=== PATIENT | female | born 2000 | race Hispanic/Latino ===

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

== ENCOUNTER → 2021-08-25 13:42 | Outpatient (CLI) | payer OTHER, SELFPAY ==
[2021-08-25 14:05] LABS: Appearance Urine UA CLEAR; Bilirubin Urine UA NEGATIVE (NEGATIVE); Color Urine UA YELLOW; Glucose Urine UA NEGATIVE (Negative); Ketones Urine UA NEGATIVE (NEGATIVE); Leukocyte Esterase Urine UA TRACE (NEGATIVE); Nitrite Urine UA NEGATIVE (Negative); Occult Blood Urine UA TRACE-INTACT (Negative); Protein Urine UA NEGATIVE (Negative); Specific Gravity Urine UA <=1.005 (1.000-1.035); Urobilinogen Urine UA 0.2 E.U./dL (0.2)
[2021-08-25 14:06] LABS: pH Urine UA 6.5 (4.5-8.0)
[2021-08-25 14:20] LABS: RBC Urine None Seen (0-5/HPF); WBC Urine 1-5/HPF (0-5/HPF)
[2021-08-25 14:21] LABS: Bacteria Urine Moderate (10-30)
[2021-08-25 15:12] LABS: Add Manual Diff / Slide Review NO; Basophils Absolute Auto 0 /uL (0-100); Basophils Percent Auto 0.1 % (0-2); Eosinophils Absolute Auto 100 /uL (0-450); Eosinophils Percent Auto 1.4 % (2-4); Hematocrit 33.7 % (36-46); Hemoglobin 11.4 g/dL (12.0-16.0); Lymphocytes Absolute Auto 1400 /uL (1100-4500); Lymphocytes Percent Auto 19.5 % (25-40); Mean Corpuscular HGB Conc 33.7 % (30-36); Mean Corpuscular Hemoglobin 27.4 PG (26-34); Mean Corpuscular Volume 81.3 fL (80-100); Monocytes Absolute Auto 400 /uL (0-900); Neutrophils Absolute Auto 5400 /uL (1500-7000); Platelet Count 274 X10^3/uL (150-400); Red Blood Cell Count 4.15 X10^6/uL (4.0-5.2); Red Cell Distribution Width 15.5 % (11.6-14.8); White Blood Cell Count 7.4 X10^3/uL (4.5-11.0)
[2021-08-25 15:38] LABS: Alanine Aminotransferase 19 IU/L (<35); Albumin 3.9 g/dL (3.5-5.0); Albumin Globulin Ratio 1.2 (1.0-2.8); Alkaline Phosphatase 56 U/L (38-126); Aspartate Aminotransferase 19 IU/L (14-36); BUN Creatinine Ratio 15.1 (6-22); Bilirubin Total 0.3 mg/dL (0.2-1.3); Blood Urea Nitrogen 8 mg/dL (7-17); Calcium 10.2 mg/dL (8.4-10.2); Carbon Dioxide 26 mmol/L (22-32); Chloride 103 mmol/L (98-107); Estimated Glomerular Filt Rate > 60.0 mL/min (>60); Globulin 3.2 g/dL (1.7-4.1); Glucose 100 mg/dL (70-100); HEMOLYSIS < 15 (0-50); Potassium 3.8 mmol/L (3.4-5.1); Sodium 136 mmol/L (137-145); Total Protein 7.1 g/dL (6.3-8.2); Uric Acid 3.8 mg/dL (2.5-6.2)
[2021-08-25 15:40] LABS: Creatinine Urine Random 14.1 mg/dL; Protein (Total) Urine Random 13 mg/dL (0-12); Protein Creatinine Ratio Urine 0.92 GRAM/24H
[2021-08-26 08:08] LABS: Varicella IgG Antibody 1694 index (Immune >165)
[2021-08-26 20:20] LABS: Hepatitis B Surface Antigen NEGATIVE s/c (NEGATIVE)
[2021-08-26 20:43] LABS: HIV 1 & 2 Ab/Ag 4th Gen Combo NEGATIVE (NEGATIVE); Hep C Virus Ab w/Reflex Quant NEGATIVE s/c (NEGATIVE)
[2021-09-21 11:09] LABS: RPR Screen REACTIVE
[2021-09-21 11:10] LABS: RPR Quant + RPR Abs NON REACTIVE
== END ==
PROVIDERS: Family Provider Pediatrics; PCP Family Medicine; Referring Provider Obstetrics & Gynecology; Visit Provider Obstetrics & Gynecology
DX: Z34.00 Encounter for supervision of normal first pregnancy, unspecified trimester (principal)
CPT/HCPCS: 36415; 80053; 80055; 81003; 81015; 82570; 84156; 84550; 86787; 86803; 86850; 86900; 86901; 87077; 87086; 87186; 87389

== ENCOUNTER → 2021-09-13 11:17 | Outpatient (CLI) | payer OTHER, MEDICAID, SELFPAY ==
[2021-09-14 20:58] LABS: Treponema pallidum Antibodies Non Reactive (Non Reactive)
== END ==
PROVIDERS: Family Provider Pediatrics; PCP Family Medicine; Referring Provider Obstetrics & Gynecology; Visit Provider Obstetrics & Gynecology
DX: A53.0 Latent syphilis, unspecified as early or late (principal); Z34.82 Encounter for supervision of other normal pregnancy, second trimester
CPT/HCPCS: 36415; 86780

== ENCOUNTER → 2021-10-03 08:57 | Outpatient (CLI) | payer OTHER, MEDICAID, SELFPAY ==
--- NOTE | 2021-10-03 08:59 | DI.US.S_ITS ---
PROCEDURE: US OB >= 14 WEEKS FETUS INDICATIONS: ANATOMY OUTSIDE/PRIOR DATING DATA: Last menstrual period (LMP): May 13, 2021 LMP-based estimated date of delivery (SANDY): February 17, 2022. First dating scan (date): July 28, 2021. Estimated date of delivery (SANDY) from first dating scan: February 18, 2022. TECHNIQUE: Real-time scanning was performed of the fetus, with image documentation and biometric measurements. COMPARISON: None. FINDINGS: General: A single living intrauterine gestation is present. Presentation: Vertex. Placenta: Placental position is anterior , without previa. Amniotic fluid index: 15.6 cm, normal range is 5-24 cm. Single deepest vertical pocket is 5 cm. heart rate: 155 beats per minute. Maternal cervical canal: 4.5 cm long. Normal lower limit is 2.5 cm. biometrics: Biparietal diameter: 4.9 cm Head circumference: 19 cm Abdominal circumference: 16.4 cm Femur length: 3.4 cm Clinically estimated gestational age: 20 weeks, 2 days Composite gestational age from present scan: 21 weeks, 1 Estimated weight and percentile: 398 g +/-59 g; 86 percentile Anatomic survey: Neuro: Ventricles are non-dilated at less than 10 mm. Cisterna magna is normal at 3-11 mm. Cerebellum is normal in size and morphology. Nuchal skin fold: Normal at less than 6 mm between 14-21 weeks gestational age. Face: Nose and lips, facial profile are normal. Spine: No evidence for spina bifida. Heart: 4-chambered heart is present, with normal ventricular outflow tracts. Diaphragm: Diaphragm is intact. Stomach: Left-sided stomach is present. Kidneys: No hydronephrosis. Normal is less than 5 mm in 2nd trimester, less than 7 mm in 3rd trimester. Cord: 3-vessel cord has orthotopic insertion. Bladder: Normal in size. Extremities: All 4 extremities identified. IMPRESSION: Live single intrauterine gestation as detailed above. We strive to produce accurate, complete, and clear reports of imaging services. To assist us in improving patient care, this report was composed using standard report templates and voice recognition software. Therefore, it may contain abnormal punctuation, insertions and/or omissions. Occasional wrong-word or sound-alike substitutions may occur. Though we review the report and make efforts to correct it, we do recommend that the report be read carefully in proper context to recognize any text inaccuracies. Dictated by: Kendrick Crabtree M.D. on 10/03/2021 at 14:45 Approved by: Kendrick Crabtree M.D. on 10/03/2021 at 14:47
== END ==
PROVIDERS: Family Provider Pediatrics; PCP Family Medicine; Referring Provider Obstetrics & Gynecology; Visit Provider Obstetrics & Gynecology
DX: Z34.02 Encounter for supervision of normal first pregnancy, second trimester (principal); Z3A.21 21 weeks gestation of pregnancy
CPT/HCPCS: 76811

== ENCOUNTER → 2021-11-14 11:16 | Outpatient (CLI) | payer OTHER, MEDICAID, SELFPAY ==
[2021-11-14 15:50] LABS: Protein (Total) Urine Random 6 mg/dL (0-12); Protein Creatinine Ratio Urine 0.04 GRAM/24H
== END ==
PROVIDERS: Family Provider Pediatrics; PCP Family Medicine; Visit Provider Obstetrics & Gynecology
DX: Z87.59 Personal history of other complications of pregnancy, childbirth and the puerperium (principal)
CPT/HCPCS: 82570; 84156

== ENCOUNTER → 2021-11-23 08:04 | Outpatient (CLI) | payer OTHER, MEDICAID, SELFPAY ==
[2021-11-23 10:23] LABS: Hematocrit 30.4 % (36-46)
[2021-11-23 10:57] LABS: GTT (PREG) 1 Hour PP 50gm Dose 146 mg/dL (76-139)
== END ==
PROVIDERS: Family Provider Pediatrics; Referring Provider Obstetrics & Gynecology; Visit Provider Obstetrics & Gynecology
DX: Z34.02 Encounter for supervision of normal first pregnancy, second trimester (principal); Z3A.26 26 weeks gestation of pregnancy
CPT/HCPCS: 82950; 85014; 85018

== ENCOUNTER → 2021-11-29 07:36 | Outpatient (CLI) | payer OTHER, MEDICAID, SELFPAY ==
[2021-11-29 10:26] LABS: Glucose Fasting Gestational 78 mg/dL (76-95)
[2021-11-29 10:26] LABS: Glucose 1 Hour Gest 160 mg/dL (76-180)
[2021-11-29 10:42] LABS: Glucose 2 Hour Gest 135 mg/dL (76-155)
[2021-11-29 11:22] LABS: Glucose Tol Interp,Gestational INTERPRETATION
[2021-11-29 12:11] LABS: Glucose 3 Hour Gest 133 mg/dL (76-140)
== END ==
PROVIDERS: Family Provider Pediatrics; Referring Provider Obstetrics & Gynecology; Visit Provider Obstetrics & Gynecology
DX: R73.09 Other abnormal glucose (principal)
CPT/HCPCS: 36415; 82951; 82952

== ENCOUNTER → 2021-12-04 12:45 | Outpatient (ROUT) | payer OTHER, MEDICAID, SELFPAY ==
[2021-12-04 15:51] LABS: Creatinine Urine Random 117.1 mg/dL; Protein (Total) Urine Random 9 mg/dL (0-12); Protein Creatinine Ratio Urine 0.07 GRAM/24H
== END ==
PROVIDERS: Family Provider Pediatrics; PCP Obstetrics & Gynecology; Visit Provider Obstetrics & Gynecology
DX: Z34.00 Encounter for supervision of normal first pregnancy, unspecified trimester (principal); Q63.9 Congenital malformation of kidney, unspecified
CPT/HCPCS: 82570; 84156

== ENCOUNTER → 2022-01-11 07:55 | Outpatient (CLI) | payer OTHER, MEDICAID, SELFPAY ==
[2022-01-11 10:04] LABS: GTT (PREG) 1 Hour PP 50gm Dose 163 mg/dL (76-139)
== END ==
PROVIDERS: Family Provider Pediatrics; PCP Obstetrics & Gynecology; Referring Provider Obstetrics & Gynecology; Visit Provider Obstetrics & Gynecology
DX: Z34.03 Encounter for supervision of normal first pregnancy, third trimester (principal); Z3A.34 34 weeks gestation of pregnancy
CPT/HCPCS: 36415; 82950

== ENCOUNTER → 2022-01-22 11:24 | Outpatient (CLI) | payer OTHER, MEDICAID, SELFPAY ==
[2022-01-23 15:32] LABS: Strep Grp B PCR NEG for Grp B Strep
== END ==
PROVIDERS: Family Provider Pediatrics; PCP Obstetrics & Gynecology; Visit Provider Obstetrics & Gynecology
DX: Z34.03 Encounter for supervision of normal first pregnancy, third trimester (principal); Z3A.36 36 weeks gestation of pregnancy
CPT/HCPCS: 87653

== ENCOUNTER → 2022-01-25 07:43 | Outpatient (CLI) | payer OTHER, MEDICAID, SELFPAY ==
[2022-01-25 08:37] LABS: Glucose Fasting Gestational 82 mg/dL (76-95)
[2022-01-25 10:03] LABS: Glucose 1 Hour Gest 151 mg/dL (76-180)
[2022-01-25 10:45] LABS: Glucose 2 Hour Gest 142 mg/dL (76-155)
[2022-01-25 10:59] LABS: Glucose Tol Interp,Gestational INTERPRETATION
[2022-01-25 12:37] LABS: Glucose 3 Hour Gest 99 mg/dL (76-140)
== END ==
PROVIDERS: Family Provider Pediatrics; PCP Obstetrics & Gynecology; Referring Provider Obstetrics & Gynecology; Visit Provider Obstetrics & Gynecology
DX: O99.810 Abnormal glucose complicating pregnancy (principal)
CPT/HCPCS: 36415; 82951; 82952

== ENCOUNTER 2022-01-29 02:22 | Outpatient (CLI) | payer OTHER, MEDICAID, SELFPAY | END 2022-01-29 03:44 | disposition home or self-care (01) | LOC: LABOR 02:24 → OB 09:48 | PROVIDERS: Family Provider Pediatrics; PCP Obstetrics & Gynecology; Referring Provider Obstetrics & Gynecology; Visit Provider Obstetrics & Gynecology | DX: O26.893 Other specified pregnancy related conditions, third trimester (principal); R10.9 Unspecified abdominal pain; R07.9 Chest pain, unspecified; Z3A.37 37 weeks gestation of pregnancy | CPT/HCPCS: 59025; G0378; G0379 ==

== ENCOUNTER 2022-02-16 05:45 | Inpatient (IN) | payer OTHER, MEDICAID, SELFPAY ==
[2022-02-16 07:00] LABS: COVID19 -Nasal RAPID Negative (Negative)
[2022-02-16 07:01] LABS: Add Manual Diff / Slide Review NO; Basophils Absolute Auto 100 /uL (0-100); Basophils Percent Auto 0.5 % (0-2); Eosinophils Absolute Auto 100 /uL (0-450); Eosinophils Percent Auto 1.1 % (2-4); Hematocrit 32.8 % (36-46); Hemoglobin 10.9 g/dL (12.0-16.0); Lymphocytes Absolute Auto 3100 /uL (1100-4500); Lymphocytes Percent Auto 23.3 % (25-40); Mean Corpuscular HGB Conc 33.3 % (30-36); Mean Corpuscular Hemoglobin 28.3 PG (26-34); Mean Corpuscular Volume 84.9 fL (80-100); Monocytes Absolute Auto 800 /uL (0-900); Monocytes Percent Auto 5.9 % (3-14); Neutrophils Absolute Auto 9100 /uL (1500-7000); Neutrophils Percent Auto 69.2 % (50-75); Platelet Count 254 X10^3/uL (150-400); Red Blood Cell Count 3.86 X10^6/uL (4.0-5.2); Red Cell Distribution Width 16.6 % (11.6-14.8); White Blood Cell Count 13.2 X10^3/uL (4.5-11.0)
--- NOTE | 2022-02-16 07:46 | PM.OBHP.IH.1 ---
OB HPI Date/Time Date of admission: 02/16/22 Date Patient Seen: 02/16/22 Time Patient Seen: 07:46 History of Present Condition Chief complaint: INPT SANDY Calculator Estimated Delivery Date Method Current WG Current Estimate 02/17/22 LMP (Uncertain) 39w 6d Other Estimates 02/18/22 Ultrasound #1 39w 5d Estimated Gestational Age (weeks): 39 : 1 Para: 0 Narrative: This patient is a 22yo @39+6 presenting for elective primary section in the setting of suspected macrosomia. The patient has failed 1 hr glucose screens and passed 3 hour glucose screens x2, and has had no other complications. Most recent EFW 1 week ago was 9#3, 96@ with AC measuring over 41 weeks. Patient reports feeling well today with no symptoms obstetrical or otherwise. No contributory medical, surgical, family, or social history. care: good care, initiated at week # (10), number of visits (13) and pounds weight gain (42) Dating criteria OB: LMP confirmed by 1st trimester US Ultrasounds: normal mid trimester US Obstetrical complications: none Medical complications OB: none Indications Operative indications ( section): elective Preadmission Labs Last OB Lab Results: Blood Type A Positive 02/16/22 06:20 Antibody Screen Negative 02/16/22 06:20 Hematocrit 32.8 % (36-46) L 02/16/22 06:20 Hemoglobin 10.9 g/dL (12.0-16.0) L 02/16/22 06:20 Hepatitis B Surface Antigen Negative s/c (NEGATIVE) 08/25/21 13:46 Hepatitis C Antibody Negative s/c (NEGATIVE) 08/25/21 13:46 RPR Titer Additional Testing Non reactive 08/25/21 13:46 Rubella Antibody 226.0 IU/mL (>15) 08/25/21 13:46 Varicella-Zoster IgG Antibody 1694 index (Immune >165) 08/25/21 13:46 Glucose 1 Hour 163 mg/dL (76-139) H 01/11/22 08:07 Group B Streptococcus (PCR) Neg for grp b strep 01/22/22 11:24 Glucose Tolerance Testing: Fasting (82), 1 hr (141), 2 hr (152) and 3 hr (88) -: Chlamydia screen: negative, Gonorrhea screen: negative and Urine: negative -: PAP smear: Normal External Labs -: Urine: negative Evaluation Evaluation Baseline heart rate: 130 Variability: Moderate (11-25) monitor accelerations: Present Monitor Decelerations: Absent Category of Tracing: Reactive Status: Category l Comments: 101/50, HR 86, afebrile [facility] Medical History Anemia Kidney anomaly, congenital Tenosynovitis, de [place] Surgical History Anesthesia [place] teeth removed (~11/12/17) Family History Mother Hyperthyroidism Sister Hyperthyroidism Grandfather Hyperlipidemia Grandmother Hypertension Grandfather Diabetes mellitus Social History marital status: ( in march) household members: spouse lives independently: Yes caregiver/support person: Yes housing: other (Trailer) pets and animals: Yes (Dog) education level: high school occupational status: employed (Dental resident assistant) current occupational exposures/hazards: No enedina/evangelical: Christianity seatbelt use: always water heater temp set < 120 deg: Yes working smoke detector in home: Yes firearms in home: No do you feel safe at home: Yes Smoking Status: Never smoker alcohol intake: former (stopped for pregancy) substance use type: does not use during the past year weight has: remained stable well-balanced diet: daily or most days daily servings fruits/ve-4 caffeine: Yes (Rarely) eating out: 1-3 times/week Type(s) of exercise: walking frequency: 1-2 times per week Meds Home Medications and Allergies Home Medications Medication Instructions Recorded Confirmed Type vitamins no.119-iron See Rx Instructions .Route .COMPLEX 09/21/21 02/16/22 History fumarate 29 mg-folic acid 1 mg tablet (Se-Santosh-19) Allergies Allergy/AdvReac Type Severity Reaction Status Date / Time No Known Drug Allergies Allergy Verified 01/29/22 09:38 Review of Systems Constitutional Constitutional: Reports system reviewed and no additional complaints, except as documented Cardiovascular Cardiovascular: Reports system reviewed and no additional complaints, except as documented Respiratory Respiratory: Reports system reviewed and no additional complaints, except as documented Gastrointestinal Gastrointestinal: Reports system reviewed and no additional complaints, except as documented Genitourinary Genitourinary: Reports system reviewed and no additional complaints, except as documented Neurologic Neurologic: Reports system reviewed and no additional complaints, except as documented OB Exam Resp Effort & Inspection: normal respiratory effort Auscultation: clear to auscultation bilaterally Cardio Rate: regular rate Rhythm: regular rhythm GI Palpation: Yes soft and No tender Objective Labs Result Diagrams: 02/16/22 06:20 Labs: Laboratory Results - last 24 hr 02/16/22 02/16/22 02/16/22 06:20 06:20 06:20 WBC 13.2 H RBC 3.86 L Hgb 10.9 L Hct 32.8 L MCV 84.9 MCH 28.3 MCHC 33.3 RDW 16.6 H Plt Count 254 Neut % (Auto) 69.2 Lymph % (Auto) 23.3 L [place] % (Auto) 5.9 Eos % (Auto) 1.1 L Baso % (Auto) 0.5 Neut # (Auto) 9100 H Lymph # (Auto) 3100 [place] # (Auto) 800 Eos # (Auto) 100 Baso # (Auto) 100 SARS-CoV-2 (PCR) Negative Blood Type A Positive Antibody Screen Negative Assessment and Plan Assessment and Plan Assessment and Plan narrative: This patient is admitted for a scheduled primary section, elective in the setting of suspected macrosomia. We reviewed the risks of C section and the alternative of attempted vaginal , and the patient would like to proceed with section. She will be prepared per the usual protocol.
[2022-02-16] MEDS: CEFAZOLIN 2 GM/20 ML SYRINGE IV (08:13)
--- NOTE | 2022-02-16 08:20 | SUR.OPER ---
Supine on padded OR bed, head on pillow, arms secured on padded arm boards at <90 degrees abduction, legs uncrossed, safety belt at thigh, tape over blanket over lower legs.
--- NOTE | 2022-02-16 08:41 | SUR.OPER ---
LIVE BABY BOY TOB 0813
[2022-02-16] MEDS: LACTATED RINGERS 1,000 ML 100 ML IV ×2 (08:45→10:55)
--- NOTE | 2022-02-16 08:48 | SUR.OPER ---
BABY AND PLACENTA TO L&D WITH L&D RN AND DAD @ 1498
[2022-02-16 09:24] VITALS: BP 124/82; PULSE 93; RESP 16; TEMP 36.9; O2SAT 99
--- NOTE | 2022-02-16 09:27 | P.OP_ITS ---
Operative Date/Time/Diagnoses Date of procedure: 02/16/22 Time of procedure: 07:45 Pre-op diagnosis: elective primary section, suspected macrosomia Post-op diagnosis: same Procedure & Clinicians Procedure: primary section Same procedure as scheduled: Yes Indications: suspected macrosomia Surgeon: Sigrid Kaur Assurance Senior Manager: Jocelin Meneses Reason for Assurance Senior Manager: Assistance with retraction, suturing, and delivery of baby. Anesthesia Type: Spinal Operative Notes Findings: Normal uterus, tubes, and ovaries. Male in cephalic presentation, weight 9#1, apgars 7+8 Closure Type: primary Specimen(s): cord blood Intraoperative meds administered: Ketorolac Estimated Blood Loss (mL): 750 Procedure in detail: EBL: 750ccs Fluids: 1800ccs UOP: 300ccs clear yellow urine Findings: Male infant in cephalic presentation, Apgars 7+8, weight 9#1, 4121g, normal uterus, tubes, ovaries. Procedures: The patient was taken to the operating room where spinal anesthesia was placed and found to be adequate. She was prepped and draped in the normal sterile fashion in the dorsal supine position with a leftward tilt. A Pfannenstiel skin incision was made with a scalpel and carried through to the underlying layer of fascia. The fascia was incised in the midline and the incision extended laterally with Mock scissors. The superior aspect of this incision was grasped with Rudi clamps, elevated, and the underlying rectus muscles dissected off bluntly and with the curved Mock scissors. Attention was then turned to the inferior aspect of this incision which, in a similar fashion, was grasped, tented up with the Rudi clamps, and the rectus muscles dissected off bluntly and with the curved Mock scissors. The rectus muscles were then in the midline, and the peritoneum identified, tented up, and entered sharply with Metzenbaum scissors. The peritoneal incision was extended superiorly and inferiorly with good visualization of the bladder. The bladder blade was inserted and the vesicouterine peritoneum identified and entered bluntly. This incision was extended laterally, and the bladder flap created digitally. The bladder blade was then reinserted and the lower uterine segment incised in transverse fashion with the scalpel. The uterine incision was bluntly extended laterally. The bladder blade was removed, and the 's head delivered atraumatically with assistance of a vacuum. After 45 seconds of delayed cord clamping, the cord was clamped and cut. The nose and mouth were suctioned as needed with a bulb syringe, and the infant was handed off to awaiting pediatricians. The placenta was then removed spontaneously, and the uterus was exteriorized and cleared of all clots and debris. The uterine incision was repaired with 1-0 chromic in a running, locked fashion a 2nd layer of the same suture was used to obtain excellent hemostasis. The uterus was returned to the abdomen, and the gutters were cleared of all clots and debris. The bladder flap was closed with 2-0 Vicryl in a running fashion, the peritoneum was closed with 3-0 Vicryl, and the fascia reapproximated with 0 Vicryl in a running fashion. The subcutaneous layer was placed with 3 0 Vicryl in an interrupted fashion and the skin was closed with 4-0 biosyn in a running fashion. The patient tolerated the procedure well. sponge lap and needle counts were correct x2. 2 g of Ancef were given at commencement of the case. The patient was taken to the recovery room in stable condition. IVF 1800ccs EBL 750ccs UOP 300ccs clear yellow urine Complications: none Olivia Baby Asher: Gender: Male Presentation: vertex Position: Right Occiput Anterior Placental Delivery Description: Manual Removal Cord Vessel Description: 3 Vessels score (1 min): 7 score (5 min): 8 weight: 9 lb 1 oz Post-operative Condition: stable Disposition: PACU Aftercare: routine postop
[2022-02-16 09:29] VITALS: BP 136/76; PULSE 100; RESP 16; O2SAT 99
[2022-02-16 09:43] VITALS: BP 127/77; PULSE 102; RESP 16; TEMP 36.8; O2SAT 98
[2022-02-16] MEDS: ACETAMINOPHEN 325 MG TABLET 650 MG PO ×3 (10:54→22:29)
[2022-02-16] MEDS: KETOROLAC 30 MG/ML VIAL IV ×2 (15:01→21:08)
[2022-02-16] MEDS: ENOXAPARIN 40 MG/0.4 ML SYRINGE SUBCUT (22:48)
[2022-02-17] MEDS: KETOROLAC 30 MG/ML VIAL IV (03:08)
[2022-02-17] MEDS: ACETAMINOPHEN 325 MG TABLET 650 MG PO ×3 (06:47→21:30)
[2022-02-17 06:56] LABS: Add Manual Diff / Slide Review NO; Basophils Absolute Auto 0 /uL (0-100); Basophils Percent Auto 0.3 % (0-2); Eosinophils Absolute Auto 100 /uL (0-450); Eosinophils Percent Auto 0.9 % (2-4); Hematocrit 21.3 % (36-46); Hemoglobin 7.1 g/dL (12.0-16.0); Lymphocytes Absolute Auto 2000 /uL (1100-4500); Lymphocytes Percent Auto 22.3 % (25-40); Mean Corpuscular HGB Conc 33.4 % (30-36); Mean Corpuscular Hemoglobin 28.4 PG (26-34); Mean Corpuscular Volume 85.1 fL (80-100); Monocytes Absolute Auto 700 /uL (0-900); Monocytes Percent Auto 8.1 % (3-14); Neutrophils Absolute Auto 6100 /uL (1500-7000); Neutrophils Percent Auto 68.4 % (50-75); Platelet Count 202 X10^3/uL (150-400); Red Cell Distribution Width 16.7 % (11.6-14.8); White Blood Cell Count 8.9 X10^3/uL (4.5-11.0)
[2022-02-17] MEDS: FERROUS SULFATE 325 MG TABLET PO (08:36)
[2022-02-17] MEDS: DOCUSATE 100 MG CAPSULE 200 MG PO (08:36)
[2022-02-17] MEDS: PRENATAL VIT,CALC/IRON/FOLIC 1 TABLET 1 TAB PO (08:37)
--- NOTE | 2022-02-17 09:32 | P.PNOB_ITS ---
Subjective - OB Subjective Patient comments: no complaints, pain well controlled and tolerating diet baby status: doing well and nursing well feeding status: exclusively breast feeding Narrative: This patient is a 22yo POD#1 s/p elective primary section in the setting of suspected macrosomia. Date Patient Seen: 02/17/22 Time Patient Seen: 09:33 Interval history: This patient is a 22yo POD#1 s/p elective primary section in the setting of suspected macrosomia. The patient had a significant hemoglobin drop secondary to intraoperative blood loss, but denies symptoms including palpitations, dizziness, or palpitations. She reports mild lochia, is ambulating and voiding, and tolerating PO though is uncertain if she has passed flatus. Baby is doing well. Exam Vital Signs (past 8 hours): 104/54, HR 98, afebrile Oxygen Delivery Method Room Air Narrative Exam Narrative: Resting in bed, nursing baby. Const General: cooperative, healthy appearing, comfortable and well groomed Resp Effort & Inspection: normal respiratory effort Auscultation: clear to auscultation bilaterally Cardio Rate: regular rate Rhythm: regular rhythm GI Inspection: incision (c/d/i, covered by aquacell) and obesity Palpation: soft and No tender Extrem General: normal to inspection Objective Labs Result Diagrams: 02/17/22 06:46 Labs: Laboratory Results - last 24 hr 02/17/22 06:46 WBC 8.9 RBC 2.50 L Hgb 7.1 L Hct 21.3 L MCV 85.1 MCH 28.4 MCHC 33.4 RDW 16.7 H Plt Count 202 Neut % (Auto) 68.4 Lymph % (Auto) 22.3 L [place] % (Auto) 8.1 Eos % (Auto) 0.9 L Baso % (Auto) 0.3 Neut # (Auto) 6100 Lymph # (Auto) 2000 [place] # (Auto) 700 Eos # (Auto) 100 Baso # (Auto) 0 Assessment & Plan Plan day: 1 plan OB: routine postop care Comments: This patient is clinically doing well, meeting postoperative goals appropriately with no symptoms of her acute blood loss anemia. Discussed rechecking CBC in AM, patient would like to avoid blood transfusion and discussed parameters for this vs. IV iron. Will continue to monitor. Received Lovenox last night, will hold tonight's dose but SCDs while stationary and encouraged to ambulate. Time Spent With Patient Time: Total time spent is greater than 50% in coordination of care (as documented) at patient's floor/unit and/or counseling patient: Time with patient: 15-24 minutes
[2022-02-17] MEDS: IBUPROFEN 600 MG TABLET PO ×3 (09:39→21:32)
[2022-02-17] MEDS: OXYCODONE IR 5 MG TABLET PO ×2 (15:53→22:26)
[2022-02-17] MEDS: LANOLIN OINT 7 GM 1 APPLIC TOP (21:29)
[2022-02-18] MEDS: IBUPROFEN 600 MG TABLET PO ×3 (03:37→16:18)
[2022-02-18] MEDS: ACETAMINOPHEN 325 MG TABLET 650 MG PO ×3 (03:37→16:18)
[2022-02-18 06:36] LABS: Add Manual Diff / Slide Review NO; Basophils Absolute Auto 0 /uL (0-100); Basophils Percent Auto 0.3 % (0-2); Eosinophils Absolute Auto 100 /uL (0-450); Eosinophils Percent Auto 1.2 % (2-4); Lymphocytes Absolute Auto 2000 /uL (1100-4500); Lymphocytes Percent Auto 23.8 % (25-40); Mean Corpuscular HGB Conc 34.3 % (30-36); Mean Corpuscular Hemoglobin 28.9 PG (26-34); Mean Corpuscular Volume 84.4 fL (80-100); Monocytes Absolute Auto 600 /uL (0-900); Monocytes Percent Auto 6.9 % (3-14); Neutrophils Absolute Auto 5600 /uL (1500-7000); Neutrophils Percent Auto 67.8 % (50-75); Platelet Count 222 X10^3/uL (150-400); Red Blood Cell Count 2.41 X10^6/uL (4.0-5.2); White Blood Cell Count 8.3 X10^3/uL (4.5-11.0)
[2022-02-18 06:40] LABS: Hematocrit 20.3 % (36-46)
[2022-02-18] MEDS: PRENATAL VIT,CALC/IRON/FOLIC 1 TABLET 1 TAB PO (09:11)
[2022-02-18] MEDS: DOCUSATE 100 MG CAPSULE 200 MG PO (09:11)
[2022-02-18] MEDS: FERROUS SULFATE 325 MG TABLET PO (09:14)
--- NOTE | 2022-02-18 10:56 | P.DS_ITS ---
Discharge Providers Provider Date of admission: 02/16/22 05:45 Discharge Date: 02/18/22 Primary care physician: Doctor Melina MD Consults: 02/16/22 09:47 Consult to Telecommunication Engineer Routine Comment: Discharge provider: Sigrid Kaur MD Summary Hospital Course Date Patient Seen: 02/18/22 Time Patient Seen: 10:30 Diagnoses: elective primary section Hospital Course: This patient was admitted for elective primary section in the setting of suspected macrosomia. Her surgery was complicated by increased intra operative blood loss and her course by acute blood loss anemia, though she remained asymptomatic. She was treated with IV iron prior to discharge. Her recovery was otherwise uncomplicated, and she was discharged on POD#2. Peripartum Data Delivery Method: Section complications: none [place] Asher: Gender: Male Disposition of : home Status at Discharge Cognitive/behavioral status at discharge: oriented Functional status at discharge: independent ambulation Overall status at discharge: patient is progressing back to baseline Time Spent with Patient Time attestation: Total time spent providing and/or coordinating discharge services: Objective Labs Result Diagrams: 02/18/22 06:20 Labs: Laboratory Results - last 24 hr 02/18/22 06:20 WBC 8.3 RBC 2.41 L Hgb 7.0 L Hct 20.3 L* MCV 84.4 MCH 28.9 MCHC 34.3 RDW 17.0 H Plt Count 222 Neut % (Auto) 67.8 Lymph % (Auto) 23.8 L [place] % (Auto) 6.9 Eos % (Auto) 1.2 L Baso % (Auto) 0.3 Neut # (Auto) 5600 Lymph # (Auto) 2000 [place] # (Auto) 600 Eos # (Auto) 100 Baso # (Auto) 0 Exam Vital Signs (past 8 hours): 122/72, HR 98, afebrile Oxygen Delivery Method Room Air Narrative Exam Narrative: Patient resting in bed. Reports ambulating, voiding, mild lochia, passing copious flatus. Denies dizziness, palpitations, WALKER, weakness. Some difficulty and patient is quite tearful, discussed and fed is best at length. No thoughts of hurting herself or baby. Patient's mother lives nearby and has good relationship with patient, encouraged patient to seek social support. Const General: cooperative, healthy appearing, comfortable and well groomed GI Palpation: soft and No tender Other: incision c/d/i, covered by aquacell Extrem General: normal to inspection Discharge Plan Discharge Plan Patient Disposition: Home Discharge orders & Medications Prescriptions: New oxycodone 5 mg tablet 5 mg PO Q6H PRN (Reason: pain) Qty: 20 0RF Rx Instructions: Take as often as every 6 hours for pain. ferrous sulfate 324 mg (65 mg iron) tablet,delayed release (DR/EC) 324 mg PO BID Qty: 60 2RF Rx Instructions: Take twice daily. Continued Se-Santosh-19 29 mg iron- 1 mg tablet See Rx Instructions .ROUTE .COMPLEX Rx Instructions: Take as prescribed. Follow up/Referrals: Sigrid Kaur MD [Physician] - 1 Week (incision check) Diet/Activity/Treatments Diet: Regular Activity: Nothing in the vagina for 6 weeks. Avoid lifting more than 10 pounds for 6 weeks. If you have increasing bleeding, fevers, chills, nausea, headaches, visual changes, or any other symptoms or concerns, call or come to the emergency room. Skin/Wound/Dressing Care Report to your healthcare provider any signs of infection, such as:: chills, fever, night sweats, increased pain, unusual drainage and unusual redness Dressing: OK to shower. Leave bandage until 1 week incision check. Visit Report/Discharge Packet Instructions: Depression, DI for Discharge Data Primary Care Provider: Miscellaneous,Doctor
[2022-02-18] MEDS: IRON SUCROSE 100 MG in SODIUM CHLORIDE 0.9% 100 ML 420 MG IV (11:11)
== END 2022-02-18 19:00 | disposition home or self-care (01) | DRG 540 ==
PROVIDERS: Admitting Provider Obstetrics & Gynecology; Family Provider Pediatrics; Referring Provider Obstetrics & Gynecology; Visit Provider Obstetrics & Gynecology
PROC: 10D00Z1 Extraction of Products of Conception, Low, Open Approach (ICD-10-PCS; CPT 59514; principal; 2022-02-16 07:45)
DX: O36.63X0 Maternal care for excessive fetal growth, third trimester, not applicable or unspecified (principal); O90.81 Anemia of the puerperium; D62 Acute posthemorrhagic anemia; Z3A.39 39 weeks gestation of pregnancy; Z37.0 Single live birth; Z20.822 Contact with and (suspected) exposure to COVID-19
CPT/HCPCS: 36415; 59050; 59514; 85025; 86850; 86900; 86901; 87635; C9803; J0690; J1650; J1756; J1885; J2274; J2405; J2590

== ENCOUNTER → 2022-04-12 12:59 | Outpatient (CLI) | payer OTHER, MEDICAID, SELFPAY ==
[2022-04-12 13:47] LABS: Hematocrit 33.3 % (36-46); Hemoglobin 10.8 g/dL (12.0-16.0); Mean Corpuscular HGB Conc 32.5 % (30-36); Mean Corpuscular Volume 77.1 fL (80-100); Platelet Count 308 X10^3/uL (150-400); Red Blood Cell Count 4.31 X10^6/uL (4.0-5.2); Red Cell Distribution Width 18.2 % (11.6-14.8); White Blood Cell Count 7.1 X10^3/uL (4.5-11.0)
[2022-04-12 13:58] LABS: Hemoglobin A1C% w Est Avg Glu 4.8 % (4.0-6.0)
[2022-04-12 14:38] LABS: Glucose 85 mg/dL (70-100)
[2022-04-12 15:21] LABS: TSH w/ Reflex to FT4 2.15 uIU/mL (0.47-4.68)
== END ==
PROVIDERS: Family Provider Pediatrics; PCP Registered Nurse Diabetes Educator; Referring Provider Registered Nurse Diabetes Educator; Visit Provider Registered Nurse Diabetes Educator
DX: R73.9 Hyperglycemia, unspecified (principal); Z83.49 Family history of other endocrine, nutritional and metabolic diseases; Z86.2 Personal history of diseases of the blood and blood-forming organs and certain disorders involving the immune mechanism
CPT/HCPCS: 36415; 82947; 83036; 84443; 85027

== ENCOUNTER 2023-03-29 15:51 | Emergency (ER) | payer OTHER, MEDICAID, SELFPAY ==
[2023-03-29 16:14] VITALS: BP 134/76; PULSE 85; RESP 16; TEMP 36.8; O2SAT 99; BMI 36.3
--- NOTE | 2023-03-29 18:17 | ED.HA ---
HPI - Headache General Chief Complaint: Headache Stated Complaint: Headache, Dizzy, Nausea Time Seen by Provider: 03/29/23 18:17 History of Present Illness HPI Narrative: 23-year-old female nonsmoker with history of headaches presents with a chief complaint of 7 days of a headache that feels different than her typical migraines. She states it gradually worsened and seems to move around from side to side. She denies obvious provocation or palliation. She denies associated symptoms such as blurred vision or trouble with speech. She denies recent trauma or injury. She denies any fever, chills or neck pain. She is taken Motrin without success. She has taken multiple tests that were negative and denies any chance of being . Related Data Home Medications Medication Instructions Recorded Confirmed vitamins no.119-iron See Rx Instructions .Route .COMPLEX 09/21/21 10/02/22 fumarate 29 mg-folic acid 1 mg tablet ([id number]-19) Previous Rx's Medication Instructions Recorded ferrous sulfate 324 mg (65 mg 324 mg PO BID acute blood loss 02/18/22 iron) tablet,delayed release anemia #60 tabs drospirenone 3 mg-ethinyl 1 tab PO DAILY #84 tabs 08/09/22 estradiol 0.03 mg tablet (Lani (28)) Allergies Allergy/AdvReac Type Severity Reaction Status Date / Time No Known Drug Allergies Allergy Verified 10/02/22 13:41 Review of Systems Review of Systems Narrative: GENERAL: See HPI. HEENT: Denies sinus pain, ear pain, sore throat, difficulty swallowing, dizziness. RESPIRATORY: Denies dyspnea, cough, wheezing, hemoptysis, sputum. CARDIOVASCULAR: Denies chest pain, palpitations, orthopnea, edema, GASTROINTESTINAL: Denies nausea, vomiting, abdominal pain, diarrhea, constipation, melena. : Denies dysuria, frequency, incontinence, hematuria, urinary retention. MUSCULOSKELETAL: denies weakness, joint pain, or bony pain SKIN: Denies rash, skin lesions, or other NEUROLOGIC: See HPI PSYCHIATRIC: No concerning psychosocial issues. 12 point review of systems is negative except for those stated above Patient History Medical History Anemia Kidney anomaly, congenital Tenosynovitis, de Quervain Surgical History Anesthesia [place] teeth removed (~11/12/17) Family History Mother Hyperthyroidism Sister Hyperthyroidism Grandfather Hyperlipidemia Grandmother Hypertension Grandfather Diabetes mellitus Social History marital status: ( in march) household members: spouse lives independently: Yes caregiver/support person: Yes housing: other (Trailer) pets and animals: Yes (Dog) education level: high school occupational status: employed (Dental asset protection assistant) current occupational exposures/hazards: No enedina/holiness: Latter-[employer] seatbelt use: always water heater temp set < 120 deg: Yes working smoke detector in home: Yes firearms in home: No do you feel safe at home: Yes Smoking Status: Never smoker alcohol intake: former (stopped for pregancy) substance use type: does not use during the past year weight has: remained stable well-balanced diet: daily or most days daily servings fruits/ve-4 caffeine: Yes (Rarely) eating out: 1-3 times/week Type(s) of exercise: walking frequency: 1-2 times per week Smoking Status: Never smoker Exam Narrative Exam Narrative: GENERAL: [23] year old patient appears stated age. Well-developed patient, in mild distress. GCS 15 HEAD: Atraumatic. Normocephalic. EYES: Pupils equal round and reactive. Extraocular motions intact. No scleral icterus. No injection or drainage. ENT: Nose without bleeding, purulent drainage. Throat without erythema, tonsillar hypertrophy or exudate. Airway patent. NECK: Trachea midline. Non tender CARDIOVASCULAR: Regular rate and rhythm without murmurs, gallops, or rubs. RESPIRATORY: Clear to auscultation. Breath sounds equal bilaterally. No wheezes, rales, or rhonchi. GASTROINTESTINAL: Abdomen soft, non-tender, nondistended. EXTREMITIES: No edema or joint tenderness. BACK: Nontender without deformity or crepitance. No flank tenderness. NEURO: AOx3. SKIN: No rash or erythema of visible areas NIH Stroke Scale 1a. LOC: Patient is alert and keenly responsive (0) 1b. LOC Questions: Patient answers both LOC questions accurately (0) 1c. LOC Commands: Patient performs both tasks correctly (0) 2. Best Gaze: Normal (0) 3. Visual: No visual loss (0) 4. Facial palsy: Normal symmetrical movements (0) 5. Motor arm: No drift (0) 6. Motor leg: No drift (0) 7. Limb ataxia: Absent (0) 8. Sensory: Normal (0) 9. Best language: No aphasia; normal (0) 10. Dysarthria: Normal (0) 11. Extinction and inattention: No abnormality (0) NIHSS: 0 Initial Vital Signs Initial Vital Signs: Vital Signs Temperature 98.3 F 03/29/23 16:14 Pulse Rate 85 03/29/23 16:14 Respiratory Rate 16 03/29/23 16:14 Blood Pressure 134/76 03/29/23 16:14 Pulse Oximetry 99 03/29/23 16:14 Oxygen Delivery Method Room Air 03/29/23 16:14 Course Orders Ordered: ED Orders 03/29/23 22:21 CT head/brain wo con Stat Discontinued Medications Sodium Chloride (Normal Saline 0.9%) 1,000 mls @ 1,000 mls/hr IV BOLUS ONE Stop: 03/29/23 23:20 Last Infusion: 03/30/23 00:22 Dose: 0 mls/hr Documented By: Admin: 03/29/23 22:41 Dose: 1,000 mls/hr Documented By: SYLVIA Ketorolac Tromethamine (Ketorolac 30 Mg/Ml Vial) 15 mg IV NOW ONE Stop: 03/29/23 23:54 Last Admin: 03/30/23 00:21 Dose: 15 mg Documented By: SYLVIA Metoclopramide HCl (Metoclopramide 10 Mg/2 Ml Inj) 10 mg IV NOW ONE Stop: 03/29/23 22:22 Last Admin: 03/29/23 22:41 Dose: 10 mg Documented By: SYLVIA Vital Signs Vital signs: Vital Signs - 8 hr 03/29/23 22:15 03/29/23 22:15 03/29/23 22:30 Pulse Rate 85 80 Respiratory Rate Blood Pressure 116/72 Pulse Oximetry 100 99 Oxygen Delivery Method 03/29/23 23:00 03/30/23 00:42 03/30/23 00:43 Pulse Rate 93 H Respiratory Rate 20 Blood Pressure Pulse Oximetry 100 100 99 Oxygen Delivery Method 03/30/23 00:45 03/30/23 00:45 Pulse Rate 85 Respiratory Rate Blood Pressure 109/68 Pulse Oximetry 99 Oxygen Delivery Method Room Air MDM - Headache MDM Narrative Medical decision making narrative: [23] year old patient presents with headache Headache considerations include, but not limited to: Subarachnoid hemorrhage, but unlikely as patient denies sudden onset of pain, not worst of life, or neck pain Meningitis considered, but thought unlikely given lack of Brudzinski's, Kernig's sign, altered mental status or fever Giant cell arteritis considered, but thought unlikely given lack of unilateral findings, pain in moravian, vision change HTN Emergency considered, but thought unlikely given normal vitals Other serious diagnoses considered unlikely given lack of red flag findings such as sudden onset, increasing frequency, immunocompromise, systemic signs (fever, chills, stiff neck, or rash), focal neurologic findings, trauma, blood thinners, etc. Prior Charts reviewed in our EMR Primary Historian: patient Imaging reviewed: CT of the head without significant findings Patient's symptoms improved over duration of stay with above-stated therapies. Findings and discharge diagnosis discussed with patient/family followed by verbalization of understanding Return precautions discussed with patient/family whom verbalize understanding of diagnosis and plan Discharge Plan Departure Patient Disposition: Home Clinical Impression: Headache Instructions: DI for Headache Activity Restrictions/Additional Instructions: *You have been diagnosed with [ Headache ] *What to do: *Take medications as directed *Follow up with your primary care provider in 2-3 days, call for an appointment. Let them know you were seen in the Emergency Department and that we ask that you be seen in follow up *Return to ER if you should have any new, worsening or concerning symptoms, such as [ fever > 101F, neck pain or stiffness, vomiting, confusion, seizure, focal weakness, vision change, speech deficit or other concerning symptoms ] Prescriptions: No Action drospirenone-ethinyl estradiol [Lani (28)] 3-0.03 mg tablet 1 tab PO DAILY Qty: 84 3RF Se--19 29 mg iron- 1 mg tablet See Rx Instructions .ROUTE .COMPLEX Rx Instructions: Take as prescribed. ferrous sulfate 324 mg (65 mg iron) tablet,delayed release (DR/EC) 324 mg PO BID Qty: 60 2RF Rx Instructions: Take twice daily. Referrals: Jonathon Durham ARNP [Primary Care Provider] - Stand Alone Forms: Patient Portal/API
[2023-03-29 22:15] VITALS: BP 116/72; PULSE 85; O2SAT 100
--- NOTE | 2023-03-29 22:21 | DI.CT.S_ITS ---
PROCEDURE: CT HEAD/BRAIN WO CON INDICATIONS: Severe headache, dizziness, nausea. TECHNIQUE: Noncontrast 4.5 mm thick angled axial sections acquired from the foramen magnum to the vertex, with coronal and sagittal reformats. For radiation dose reduction, the following was used: automated exposure control, adjustment of mA and/or kV according to patient size. COMPARISON: None. FINDINGS: Image quality: Excellent. CSF spaces: Basal cisterns are patent. No extra-axial fluid collections. Ventricles are normal in size and shape. Brain: No intracranial hemorrhage, mass, or mass effect. Jovel-white matter interface appears preserved. Skull and face: Calvarium and visualized facial bones are intact, without suspicious lesions. Sinuses: Visualized sinuses and mastoids are clear. IMPRESSION: 1. No acute intracranial abnormality. Dictated by: Marty Payne M.D. on 03/30/2023 at 0:03 Approved by: Marty Payne M.D. on 03/30/2023 at 0:03
[2023-03-29 22:30] VITALS: PULSE 80; O2SAT 99
[2023-03-29] MEDS: SODIUM CHLORIDE 0.9% 1,000 ML 1000 ML IV (22:41)
[2023-03-29] MEDS: METOCLOPRAMIDE 10 MG/2 ML INJ IV (22:41)
--- NOTE | 2023-03-29 22:49 | PC.NURSE ---
Pt also reports pain in both ears.
[2023-03-29 23:00] VITALS: PULSE 93; RESP 20; O2SAT 100
[2023-03-30] MEDS: KETOROLAC 30 MG/ML VIAL 15 MG IV (00:21)
[2023-03-30 00:42] VITALS: O2SAT 100
[2023-03-30 00:43] VITALS: O2SAT 99
[2023-03-30 00:45] VITALS: BP 109/68; PULSE 85; O2SAT 99
== END 2023-03-30 00:50 | disposition home or self-care (01) ==
PROVIDERS: Emergency Provider Emergency Medicine; Family Provider Pediatrics; PCP Registered Nurse Diabetes Educator
DX: R51.9 Headache, unspecified (principal)
CPT/HCPCS: 36415; 70450; 96361; 96374; 96375; 99284; J1885; J2765

== ENCOUNTER → 2023-05-07 12:36 | Outpatient (CLI) | payer OTHER, MEDICAID, SELFPAY ==
--- NOTE | 2023-05-07 12:38 | DI.RAD.S_ITS ---
PROCEDURE: XR WRIST LT MIN 3V INDICATIONS: eval bilateral radial wrist pain TECHNIQUE: 4 views of the wrist were acquired. COMPARISON: None. FINDINGS: Bones: No fractures or dislocations. No suspicious bony lesions. Scaphoid view: Scaphoid is intact. Soft tissues: No suspicious soft tissue calcifications. IMPRESSION: No fracture. No osseous lesion. If symptoms and/or clinical suspicion for pathology persists, further assessment with repeat radiographs (7-10 days) or advanced imaging (e.g. CT, MRI or bone scan) should be considered. Dictated by: Barbara Lopez MD, PhD on 05/07/2023 at 13:10 Approved by: Barbara Lopez MD, PhD on 05/07/2023 at 13:10
--- NOTE | 2023-05-07 12:38 | DI.RAD.S_ITS ---
PROCEDURE: XR WRIST RT MIN 3V INDICATIONS: eval bilateral radial wrist pain TECHNIQUE: 4 views of the wrist were acquired. COMPARISON: None. FINDINGS: Bones: No fractures or dislocations. No suspicious bony lesions. Scaphoid view: Scaphoid is intact. Soft tissues: No suspicious soft tissue calcifications. IMPRESSION: No fracture. No osseous lesion. If symptoms and/or clinical suspicion for pathology persists, further assessment with repeat radiographs (7-10 days) or advanced imaging (e.g. CT, MRI or bone scan) should be considered. Dictated by: Barbara Lopez MD, PhD on 05/07/2023 at 13:10 Approved by: Barbara Lopez MD, PhD on 05/07/2023 at 13:11
== END ==
PROVIDERS: Family Provider Pediatrics; PCP Registered Nurse Diabetes Educator; Referring Provider Registered Nurse Diabetes Educator; Visit Provider Registered Nurse Diabetes Educator
DX: M25.531 Pain in right wrist (principal); M25.532 Pain in left wrist
CPT/HCPCS: 73110

== ENCOUNTER 2023-07-24 14:24 | Emergency (ER) | payer OTHER, MEDICAID, SELFPAY ==
[2023-07-24 14:30] VITALS: BP 134/87; PULSE 107; RESP 20; TEMP 36.6; O2SAT 100; BMI 36.3
[2023-07-24 16:35] VITALS: BP 112/62; PULSE 81; RESP 16; O2SAT 97
--- NOTE | 2023-07-24 16:38 | ED.EXTPRO ---
HPI - Extremity Problem <Renetta Coe PA-C - Last Filed: 07/24/23 16:44> General Chief complaint: Extremity Problem,Nontraumatic Stated complaint: L arm pain/numbness/ coldness Time Seen by Provider: 07/24/23 16:18 Source: patient Mode of arrival: Ambulatory History of Present Illness HPI Narrative: Patient is a 23-year-old female no significant past medical history who presents with 3 hours of left arm numbness, pain, feeling cold, and swelling. She reports a past history of bilateral carpal tunnel syndrome which has caused numbness and tingling in her hands in the past. These symptoms started with some numbness in her upper arm over the past several weeks and then progressed to symptoms throughout her arm just prior to arrival. She does not work, takes care of her toddler. She has not been using crutches or other equipment that may might cause pressure on the brachial plexus. Denies family history of MS, denies personal history of diabetes. She has not taken any medication or tried any therapy. Related Data Previous Rx's Medication Instructions Recorded pseudoephedrine HCl 60 mg tablet 60 mg PO Q6H PRN ear plugged 04/01/23 sensation #30 tabs sumatriptan succinate 50 mg tablet See Rx Instructions PO .COMPLEX 04/01/23 (Imitrex) #10 tabs Allergies Allergy/AdvReac Type Severity Reaction Status Date / Time No Known Drug Allergies Allergy Verified 05/07/23 11:39 Review of Systems <Renetta Coe PA-C - Last Filed: 07/24/23 16:44> Review of Systems ROS Unobtainable: All systems reviewed & are unremarkable except as noted in HPI and below Patient History <Renetta Coe PA-C - Last Filed: 07/24/23 16:44> Medical History Anemia Kidney anomaly, congenital Tenosynovitis, de Quervain Surgical History Anesthesia [place] teeth removed (~11/12/17) Family History Mother Hyperthyroidism Sister Hyperthyroidism Grandfather Hyperlipidemia Grandmother Hypertension Grandfather Diabetes mellitus Social History marital status: ( in march) household members: spouse lives independently: Yes caregiver/support person: Yes housing: other (Trailer) pets and animals: Yes (Dog) education level: high school occupational status: employed (Dental medical support assistant) current occupational exposures/hazards: No enedina/scientology: Moravian seatbelt use: always water heater temp set < 120 deg: Yes working smoke detector in home: Yes firearms in home: No do you feel safe at home: Yes Smoking Status: Never smoker alcohol intake: former (stopped for pregancy) substance use type: does not use during the past year weight has: remained stable well-balanced diet: daily or most days daily servings fruits/ve-4 caffeine: Yes (Rarely) eating out: 1-3 times/week Type(s) of exercise: walking frequency: 1-2 times per week Smoking Status: Never smoker Substance Use Type: does not use Exam <Renetta Coe PA-C - Last Filed: 07/24/23 16:44> Narrative Exam Narrative: GENERAL: 23 year old patient appears stated age. Well-developed patient, in no distress. NEURO: AOx3. HEAD: Atraumatic. Normocephalic. EYES: Pupils equal round and reactive. Extraocular motions intact. No scleral icterus. No injection or drainage. ENT: Nose without bleeding or purulent drainage. Airway patent. NECK: Trachea midline. Non tender CARDIOVASCULAR: Regular rate and rhythm without murmurs, gallops, or rubs. RESPIRATORY: Clear to auscultation. Breath sounds equal bilaterally. No wheezes, rales, or rhonchi. GASTROINTESTINAL: Abdomen soft, non-tender, nondistended. EXTREMITIES: 5/5 strength in bilateral upper extremities including transportation department head strength, finger strength, wrist flexion/extension, elbow flexion/extension, shoulder range of motion intact. Skin bilaterally is warm, no erythema. No wounds or signs of infection. Radial pulse 2 +. Sensation in hands is intact, tested with eyes closed. SKIN: No rash or erythema of visible areas Initial Vital Signs Initial Vital Signs: Vital Signs Temperature 98 F 07/24/23 14:30 Pulse Rate 107 H 07/24/23 14:30 Respiratory Rate 20 07/24/23 14:30 Blood Pressure 134/87 07/24/23 14:30 Pulse Oximetry 100 07/24/23 14:30 Oxygen Delivery Method Room Air 07/24/23 14:30 <Haily Bello MD - Last Filed: 07/24/23 18:42> Initial Vital Signs Initial Vital Signs: Vital Signs Temperature 98 F 07/24/23 14:30 Pulse Rate 107 H 07/24/23 14:30 Respiratory Rate 20 07/24/23 14:30 Blood Pressure 134/87 07/24/23 14:30 Pulse Oximetry 100 07/24/23 14:30 Oxygen Delivery Method Room Air 07/24/23 14:30 Course <Renetta Coe PA-C - Last Filed: 07/24/23 16:44> Vital Signs Vital signs: Vital Signs - 8 hr 07/24/23 14:30 07/24/23 16:35 Temperature 98 F Pulse Rate 107 H 81 Respiratory Rate 20 16 Blood Pressure 134/87 112/62 Pulse Oximetry 100 97 Oxygen Delivery Method Room Air Room Air <Haily Bello MD - Last Filed: 07/24/23 18:42> Vital Signs Vital signs: Vital Signs - 8 hr 07/24/23 14:30 07/24/23 16:35 Temperature 98 F Pulse Rate 107 H 81 Respiratory Rate 20 16 Blood Pressure 134/87 112/62 Pulse Oximetry 100 97 Oxygen Delivery Method Room Air Room Air MDM - Extremity (Nontraumatic) <Renetta Coe PA-C - Last Filed: 07/24/23 16:44> MDM Narrative Medical decision making narrative: Multiple etiologies for patient's symptoms considered including, but not limited to: Pinched nerve, brachial plexus injury, multiple sclerosis, peripheral neuropathy Patient's exam is very reassuring with equal strength, sensation, motor, capillary refill in bilateral upper extremities. Suspect pinched nerve due to repetitive movement of lifting her toddler child. Advised conservative therapy to include heat, NSAIDs, rest, stretching. Referral placed a PT. if symptoms persist or new symptoms develop, I suggest she follow up with her primary care for further evaluation. Patient's symptoms improved over duration of stay with above-stated therapies. Findings and discharge diagnosis discussed with patient/family followed by verbalization of understanding Return precautions discussed with patient/family whom verbalize understanding of diagnosis and plan Discharge Plan Departure Patient Disposition: Home Clinical Impression: Pinched nerve in shoulder Qualifiers: Laterality: left Qualified Code(s): G56.82 - Other specified mononeuropathies of left upper limb Instructions: How To Perform RICE (Rest, Ice, Compress, Elevate) Activity Restrictions/Additional Instructions: *You have been diagnosed with a pinched nerve in your left shoulder. I suspect this is due to repetitive movements such as lifting your toddler causing irritation of the nerve as it passes into your arm. I suggest a trial of supportive care, to include heat, NSAIDs such as ibuprofen, rest, and stretching. I will also place a referral to physical therapy. If your symptoms are not improving or if they worsen, you should follow up with your primary care. I do not think it is likely but there are alternate diagnoses that can be evaluated if your symptoms persist. Right now it is too soon to know if these symptoms are due to a pinched nerve or irritation of the nerve or a more significant underlying pathology. *What to do: *Please continue to take your regular medications as directed. [ ] New medication prescriptions sent to your pharmacy: [ ] [ ] New medication written as a paper prescription [x] No new medications given *Please follow up with your primary care provider in 2-3 days, call for an appointment. Let them know you were seen in the Emergency Department and that we ask that you be seen in follow up. We will electronically transmit a record of today's note if your PCP is in our system *If you do not have a primary care provider please contact the [facility] Resource line at [phone]. They will ask some questions about your medical history and help get you set up with a doctor in the community. *Return to Emergency Department if you should have any new, worsening or concerning symptoms, such as [fever greater than 101 F, shaking chills, worsening pain, persistent vomiting or other concerning symptoms]. Prescriptions: No Action sumatriptan succinate [Imitrex] 50 mg tablet See Rx Instructions PO .COMPLEX Qty: 10 3RF Rx Instructions: take 1 tab at onset of headache; if no relief may repeat 1 tab after at least 2 hrs; max = 4 tabs/24 hr PO pseudoephedrine HCl 60 mg tablet 60 mg PO Q6H PRN (Reason: ear plugged sensation) Qty: 30 1RF Referrals: [facility] [place] [Provider Group] Jonathon Durham ARNP [Primary Care Provider] - Stand Alone Forms: Patient Portal/API ED Sign-out <Haily Bello MD - Last Filed: 07/24/23 18:42> Cosign ED Attending Cosignature Attestation: I was immediately available in the department for consultation throughout this patient's visit. Haily Bello MD
== END 2023-07-24 16:46 | disposition home or self-care (01) ==
PROVIDERS: Emergency Provider Physician Assistant; Family Provider Pediatrics; PCP Registered Nurse Diabetes Educator
DX: G56.82 Other specified mononeuropathies of left upper limb (principal)
CPT/HCPCS: 99281; 99282

== ENCOUNTER → 2023-07-29 11:07 | Outpatient (CLI) | payer OTHER, MEDICAID, SELFPAY ==
--- NOTE | 2023-07-29 11:10 | DI.RAD.S_ITS ---
PROCEDURE: XR SHOULDER LT MIN 2V INDICATIONS: L shoulder pain/?radiculopathy, no trauma TECHNIQUE: 3 views of the shoulder were acquired. COMPARISON: None. FINDINGS: Bones: No fractures or dislocations. No suspicious bony lesions. Visualized ribs appear intact. Soft tissues: No suspicious soft tissue calcifications. IMPRESSION: No acute bony abnormality. Dictated by: Kobe Goss M.D. on 07/29/2023 at 16:58 Approved by: Kobe Goss M.D. on 07/29/2023 at 17:00
--- NOTE | 2023-07-29 11:10 | DI.RAD.S_ITS ---
PROCEDURE: XR CERVICAL SPINE 4V OR 5V INDICATIONS: L shoulder pain/?radiculopathy, no trauma TECHNIQUE: 5 views of the cervical spine acquired. COMPARISON: None. FINDINGS: Bones: No fractures or dislocations to the T1 level. Oblique images demonstrate no bony foraminal stenoses. Soft tissues: No prevertebral soft tissue swelling. IMPRESSION: Unremarkable cervical spine plain films. Patent bony foramina. Dictated by: Kobe Goss M.D. on 07/29/2023 at 17:01 Approved by: Kobe Goss M.D. on 07/29/2023 at 17:01
== END ==
PROVIDERS: Family Provider Pediatrics; PCP Registered Nurse Diabetes Educator; Referring Provider Registered Nurse Diabetes Educator; Visit Provider Registered Nurse Diabetes Educator
DX: M54.12 Radiculopathy, cervical region (principal); S46.912A Strain of unspecified muscle, fascia and tendon at shoulder and upper arm level, left arm, initial encounter
CPT/HCPCS: 72050; 73030

== ENCOUNTER → 2023-09-05 15:30 | Outpatient (CLI) | payer OTHER, MEDICAID, SELFPAY ==
[2023-09-05 16:58] LABS: Add Manual Diff / Slide Review NO; Basophils Absolute Auto 0 /uL (0-100); Basophils Percent Auto 0.5 % (0-2); Eosinophils Absolute Auto 200 /uL (0-450); Eosinophils Percent Auto 2.3 % (2-4); Hematocrit 37.4 % (36-46); Hemoglobin 12.6 g/dL (12.0-16.0); Lymphocytes Absolute Auto 1700 /uL (1100-4500); Lymphocytes Percent Auto 21.5 % (25-40); Mean Corpuscular HGB Conc 33.6 % (30-36); Mean Corpuscular Hemoglobin 27.3 PG (26-34); Mean Corpuscular Volume 81.2 fL (80-100); Monocytes Absolute Auto 500 /uL (0-900); Monocytes Percent Auto 6.2 % (3-14); Neutrophils Absolute Auto 5700 /uL (1500-7000); Neutrophils Percent Auto 69.5 % (50-75); Platelet Count 314 X10^3/uL (150-400); Red Cell Distribution Width 15.5 % (11.6-14.8); White Blood Cell Count 8.1 X10^3/uL (4.5-11.0)
[2023-09-05 17:24] LABS: HEMOLYSIS < 15 (0-50); Iron 52 ug/dL (37-170)
[2023-09-05 17:37] LABS: Percent Iron Saturation 14 % (15-50); Total Iron Binding Capacity 362 ug/dL (265-497); Transferrin 308 mg/dL (206-381)
[2023-09-05 17:59] LABS: TSH w/ Reflex to FT4 1.18 uIU/mL (0.47-4.68)
[2023-09-05 18:03] LABS: Alanine Aminotransferase 28 IU/L (<35); Albumin 4.4 g/dL (3.5-5.0); Albumin Globulin Ratio 1.2 (1.0-2.8); Alkaline Phosphatase 53 U/L (38-126); Aspartate Aminotransferase 24 IU/L (14-36); BUN Creatinine Ratio 18.8 (6-22); Bilirubin Total 0.5 mg/dL (0.2-1.3); Blood Urea Nitrogen 12 mg/dL (7-17); Calcium 9.8 mg/dL (8.4-10.2); Carbon Dioxide 24 mmol/L (22-32); Chloride 103 mmol/L (98-107); Estimated Glomerular Filt Rate > 60 mL/min (>60); Globulin 3.6 g/dL (1.7-4.1); Glucose 87 mg/dL (70-100); HEMOLYSIS < 15 (0-50); Potassium 4.1 mmol/L (3.4-5.1); Sodium 139 mmol/L (137-145)
[2023-09-05 18:36] LABS: Ferritin 18 ng/mL (6-137)
== END ==
PROVIDERS: Family Provider Pediatrics; PCP Registered Nurse Diabetes Educator; Referring Provider Physician Assistant; Visit Provider Physician Assistant
DX: D64.9 Anemia, unspecified (principal); R07.9 Chest pain, unspecified; R53.83 Other fatigue
CPT/HCPCS: 36415; 80053; 82728; 83540; 83550; 84443; 85025

== ENCOUNTER → 2023-09-07 14:11 | Outpatient (CLI) | payer OTHER, MEDICAID, SELFPAY ==
--- NOTE | 2023-09-07 14:14 | DI.RAD.S_ITS ---
PROCEDURE: XR CHEST 2V INDICATIONS: chest pressure TECHNIQUE: 2 views of the chest were acquired. COMPARISON: None. FINDINGS: Surgical changes and devices: None. Lungs and pleura: Lungs are clear. No pleural effusions or pneumothorax. Mediastinum: Mediastinal contours are normal. Heart size is normal. Bones and chest wall: No suspicious bony abnormalities. Soft tissues appear unremarkable. IMPRESSION: No acute cardiopulmonary abnormality is seen. Dictated by: Bowen Medina M.D. on 09/07/2023 at 20:05 Approved by: Bowen Medina M.D. on 09/07/2023 at 20:05
== END ==
LOC: RAD 14:13
PROVIDERS: Family Provider Pediatrics; PCP Registered Nurse Diabetes Educator; Referring Provider Physician Assistant; Visit Provider Physician Assistant
DX: R07.89 Other chest pain (principal)
CPT/HCPCS: 71046

== ENCOUNTER → 2023-09-11 15:43 | Outpatient (CLI) | payer OTHER, MEDICAID, SELFPAY ==
--- NOTE | 2023-09-11 15:45 | DI.RAD.S_ITS ---
PROCEDURE: XR LUMBAR SPINE MIN 4V INDICATIONS: eval BUE paresthesias TECHNIQUE: 5 views of the lumbar spine were acquired, including bilateral oblique views. COMPARISON: None. FINDINGS: Bones: 5 nonrib-bearing vertebrae are present. There is normal bony alignment. No vertebral body compression fractures. No suspicious bony lesions. Soft tissues: Overlying bowel gas pattern is normal. No suspicious soft tissue calcifications. Oblique images: No pars defects. IMPRESSION: No acute bony abnormality. No significant degenerative changes. Dictated by: Que Garza M.D. on 09/11/2023 at 16:25 Approved by: Que Garza M.D. on 09/11/2023 at 16:26
== END ==
PROVIDERS: Family Provider Pediatrics; PCP Registered Nurse Diabetes Educator; Referring Provider Registered Nurse Diabetes Educator; Visit Provider Registered Nurse Diabetes Educator
DX: R20.2 Paresthesia of skin (principal)
CPT/HCPCS: 72110